=== PATIENT | male | born 1970 | race Caucasian/White ===

== ENCOUNTER 2023-12-20 17:17 | Emergency (ER) | payer OTHER ==
--- NOTE | 2023-12-20 17:45 | ED Physician Documentation ---
PD HPI ABD PAIN - Stated complaint Stated Complaint: RT ABD PX - Chief complaint Chief Complaint: Abd Pain - History obtained from History obtained from: Patient - Additional information Additional information: 53-year-old gentleman who at the age of 11 had what sounds like a paraesophageal hernia repair and 7 years ago had a laparoscopic cholecystectomy. For 3 days he has been dealing with right-sided abdominal pain that does not change after eating. It is associated with chills. He thought he might be constipated but cleaned himself out with laxatives and that did not result in a change of his pain. PD PAST MEDICAL HISTORY - Past Medical History Past Medical History: No - Past Surgical History Past Surgical History: Yes General: Appendectomy - Present Medications Home Medications: Ambulatory Orders Medication Instructions Recorded Confirmed No Known Home Medications 12/20/23 12/20/23 - Allergies Allergies/Adverse Reactions: Allergies Allergy/AdvReac Type Severity Reaction Status Date / Time No Known Drug Allergies Allergy Verified 12/20/23 17:28 - Social History Does the pt smoke?: No Smoking Status: Never smoker Does the pt drink ETOH?: No Does the pt have substance abuse?: No - Immunizations Immunizations are current?: Yes - POLST Patient has POLST: No PD ED PE NORMAL - Vitals Vital signs reviewed: Yes - General General: Alert and oriented X 3, No acute distress - Cardiac Cardiac: RRR, No murmur - Respiratory Respiratory: No respiratory distress, Clear bilaterally - Abdomen Abdomen: Other (Diffusely tender to the right abdomen without surgical signs) - Neuro Neuro: Alert and oriented X 3 Results - Vitals Vitals: Vital Signs - 24 hr 12/20/23 12/20/23 17:29 17:41 Temperature 36.8 C Heart Rate 99 98 Respiratory 16 18 Rate Blood Pressure 118/76 134/90 H O2 Saturation 99 100 Oxygen O2 Source Room air - Labs Labs: Laboratory Tests 12/20/23 12/20/23 17:50 17:50 WBC 11.6 H RBC 5.02 Hgb 15.4 Hct 46.6 MCV 92.8 MCH 30.7 MCHC 33.0 RDW 12.4 Plt Count 203 MPV 10.1 Neut # (Auto) 8.8 H Lymph # (Auto) 1.4 L Lake # (Auto) 1.2 H Eos # (Auto) 0.0 Baso # (Auto) 0.0 Absolute Nucleated RBC 0.00 Nucleated RBC % 0.0 Sodium 136 Potassium 3.9 Chloride 101 Carbon Dioxide 27 Anion Gap 8.0 BUN 11 Creatinine 0.8 Estimated GFR (MDRD) 102 Glucose 87 Calcium 9.3 Total Bilirubin 1.5 H AST 16 ALT 22 Alkaline Phosphatase 68 Total Protein 7.5 Albumin 4.4 Globulin 3.1 Albumin/Globulin Ratio 1.4 Lipase < 10 L PD Medical Decision Making - ED course ED course: 53-year-old gentleman presents for right abdominal pain, it is in the right mid abdomen of 3 days duration and associated with chills. He has had his gallbladder out and a paraesophageal hernia repair as a child. Differential diagnosis would include appendicitis, epiploic appendagitis, vascular emergency, or biliary etiology other than cholecystitis/biliary colic obviously. He is ten ben so atypical ACS and vascular issue are much less likely. Lab work demonstrates a white count of 11.6 with left shift, CMP only notable for mild elevation in bilirubin without prior values for comparison and no elevation in his other liver enzymes. Care to my overnight colleague, Dr. Razo at 7 PM shift change pending CT read. On my "wet read" of the study he does have some inflammatory changes kind of in the mesentery and anterior to the liver on the right. Question epiploic appendagitis Departure - Departure Clinical Impression: Abdominal pain Condition: Stable Forms: PCP List
[2023-12-20] MEDS ORDERED: iohexoL-300 100 ML VIAL ONE (17:46)
[2023-12-20 17:56] LABS: BASOPHILS % (AUTO) 0.3 %; EOSINOPHILS % (AUTO) 0.3 %; HCT - HEMATOCRIT 46.6 % (42.0-52.0); HGB - HEMOGLOBIN 15.4 g/dL (14.0-18.0); LYMPHOCYTES # (AUTO) 1.4 10^3/uL (1.5-3.5); LYMPHOCYTES % (AUTO) 12.2 %; MEAN CORPUSCULAR HEMOGLOBIN 30.7 pg (27.0-31.0); MEAN CORPUSCULAR VOLUME 92.8 fL (80.0-94.0); MEAN PLATELET VOLUME 10.1 fL (7.4-11.4); MONOCYTES # (AUTO) 1.2 10^3/uL (0.0-1.0); MONOCYTES % (AUTO) 10.1 %; NEUTROPHILS # (AUTO) 8.8 10^3/uL (1.5-6.6); NEUTROPHILS % (AUTO) 76.6 %; PLT - PLATELET COUNT 203 10^3/uL (130-450); RED BLOOD COUNT 5.02 10^6/uL (4.70-6.10); RED CELL DISTRIBUTION WIDTH 12.4 % (12.0-15.0); WHITE BLOOD COUNT 11.6 x10^3/uL (4.8-10.8)
[2023-12-20] MEDS: KETOROLAC 15 MG/ML VIAL IVP STA (18:14)
[2023-12-20 18:19] LABS: ALBUMIN 4.4 g/dL (3.2-5.5); ALBUMIN/GLOBULIN RATIO 1.4 (1.0-2.2); ALKALINE PHOSPHATASE 68 IU/L (42-121); ALT ALANINE AMINOTRANSFERASE 22 IU/L (10-60); AST ASPARTATE AMINOTRANSFERASE 16 IU/L (10-42); BILIRUBIN,TOTAL 1.5 mg/dL (0.2-1.0); BUN - BLOOD UREA NITROGEN 11 mg/dL (6-20); CALCIUM 9.3 mg/dL (8.5-10.3); CARBON DIOXIDE - CO2 27 mmol/L (21-32); CHLORIDE 101 mmol/L (101-111); CREATININE 0.8 mg/dL (0.6-1.3); GFR - MDRD 102 (>89); GLUCOSE 87 mg/dL (74-104); LIPASE < 10 U/L (11-82); POTASSIUM 3.9 mmol/L (3.5-4.5); SODIUM 136 mmol/L (135-145); TOTAL PROTEIN 7.5 g/dL (6.4-8.9)
[2023-12-20] MEDS: iohexoL-300 100 ML VIAL IVP ONE (18:50)
--- NOTE | 2023-12-20 19:05 | ED Physician Documentation ---
ED Addendum - Addendum Addendum: 12/20/23 19:05 53yo M w/h/o distant cholecystectomy/possible paraesophageal hernia repair present R sided abdominal pain. He is stable. Concern for possible inflammatory changes near liver on CT, awaiting formal read. PLAN: follow up CT, reassess, anticipating potential discharge. 12/20/23 20:12 On my review of workup, patient has mild leukocytosis to 11.6, neutrophilic, with no anemia or thrombocytopenia. CMP with mild bilirubin elevation without recent for comparison. No ALT or AST or alk phos elevation. Lipase not elevated. Per chart review, in addition to paraesophageal hernia repair and laparoscopic cholecystectomy, patient has history of appendectomy. CT: I agree with radiology reads of imaging on my independent review of imaging, with radiology read below "FINDINGS: Image quality: Diagnostic. Lower chest: Unremarkable. Liver: No solid mass. Gallbladder: Surgically absent. Biliary tree: No intrahepatic or extrahepatic dilation, accounting for age. Spleen: No splenomegaly. Pancreas: No pancreatic ductal dilation. Adrenals: No adrenal nodule. Kidneys and ureters: No hydronephrosis. No renal cystic lesion which requires follow up. No solid mass. 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 Inflammatory changes result in mass effect of the transverse colon at the hepatic flexure. Query inflammatory changes extend into the retroperitoneum and transverse colon, for example . Colonic diverticulosis with out evidence of acute inflammation. Trace fluid in the pelvis. No pneumoperitoneum. Lymph nodes: No central or retroperitoneal adenopathy. Vessels: No infrarenal aortic aneurysm. Patent portal vein. PELVIS Reproductive organs: Unremarkable. Bladder: No abnormal wall thickening, accounting for underdistention. Pelvic lymph nodes: No pelvic adenopathy by size criteria. Bones: No aggressive osseous abnormality. Other: No significant ventral or inguinal hernia. 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 Mild mass effect with possible extension of inflammatory changes to the transverse colon at the hepatic flexure. Small volume pelvic fluid. Colonic diverticulosis without CT evidence of acute diverticulitis. Reviewed by: Letitia Owens MD, PhD on 12/20/2023 7:39 PM PDT" I am requesting General Surgery consult. I assessed patient in person, confirm history. He has mild upper quadrant tenderness currently, no peritoneal signs, no fever, nausea or vomiting. He is tolerating p.o. No other changes. He states while prior pain control at times helped, he would prefer narcotic. He understands careful use of this. I will order oxycodone. I spoke with Dr. Wilson of Gen Surg on phone at roughly 8:02PM, reviewing case and imaging. He recommends discharge with pain control and outpatient general surgery clinic follow-up, which patient can arrange via primary care and also by calling [phone]. No antibiotics or other treatment/testing in ER needed. I discussed above with patient, who understands and agrees. Copy of CT read given for follow up of all findings, with work up discussed for follow up. Repeat exams and vital signs reassuring. Patient questions answered and plan reviewed. No other new concerns. Strong return precautions given. Patient discharged. Diagnosis: RUQ abdominal pain Disposition: home Condition: stable Rx: oxycodone, Narcan prescribed 12/20/23 21:17
--- NOTE | 2023-12-20 19:41 | CT Report ---
PROCEDURE: Abdomen/Pelvis W INDICATIONS: iv only r abd pain CONTRAST: 100ml [id number] TECHNIQUE: After the administration of intravenous contrast, a CT scan of the abdomen and pelvis was performed. Images were recorded and evaluated at appropriate window settings. Reformats: coronal and sagittal. F or radiation dose reduction, the following was used: automated exposure control, adjustment of mA and /or kV according to patient size. COMPARISON: None. FINDINGS: Image quality: Diagnostic. Lower chest: Unremarkable. Liver: No solid mass. Gallbladder: Surgically absent. Biliary tree: No intrahepatic or extrahepatic dilation, accounting for age. Spleen: No splenomegaly. Pancreas: No pancreatic ductal dilation. Adrenals: No adrenal nodule. Kidneys and ureters: No hydronephrosis. No renal cystic lesion which requires follow up. No solid mas s. Stomach, bowel and peritoneum: There is heterogeneous soft tissue attenuation in the right anterior m id and lower abdomen likely reflecting omental infarct. Inflammatory changes result in mass effect of the transverse colon at the hepatic flexure. Query inflammatory changes extend into the retroperiton eum and transverse colon, for example . Colonic diverticulosis with out evidence of acute inflamm ation. Trace fluid in the pelvis. No pneumoperitoneum. Lymph nodes: No central or retroperitoneal adenopathy. Vessels: No infrarenal aortic aneurysm. Patent portal vein. PELVIS Reproductive organs: Unremarkable. Bladder: No abnormal wall thickening, accounting for underdistention. Pelvic lymph nodes: No pelvic adenopathy by size criteria. Bones: No aggressive osseous abnormality. Other: No significant ventral or inguinal hernia. IMPRESSION: Soft tissue attenuation and fat stranding in the right anterior mid and lower abdomen likely reflecti ng omental infarct. Mild mass effect with possible extension of inflammatory changes to the transvers e colon at the hepatic flexure. Small volume pelvic fluid. Colonic diverticulosis without CT evidence of acute diverticulitis. Reviewed by: Letitia Owens MD, PhD on 12/20/2023 7:39 PM PDT Approved by: Letitia Owens MD, PhD on 12/20/2023 7:39 PM PDT Station ID: [id number]
[2023-12-20] MEDS: oxyCODONE 5 MG TABLET PO STA (20:21)
[2023-12-20 20:40] VITALS: BP 122/84; O2SAT 99
== END 2023-12-20 20:35 | disposition home or self-care (01) ==
LOC: ED 17:17
DX: R10.11 Right upper quadrant pain (principal)
CPT/HCPCS: 36415; 74177; 80053; 83690; 85025; 96374; 99284; A9270; Q9967